=== PATIENT | male | born 1950 | race Caucasian/White ===

== ENCOUNTER 2020-06-30 07:33 | Outpatient (CLI) | payer MEDICARE, OTHER ==
[2020-06-30 14:29] LABS: INR-International Normal Ratio 1.2
[2020-06-30 14:31] LABS: #Eosinphils 0.3 thou/uL (0.0-0.7); #Lymphocytes 1.8 thou/uL (1.20-3.40); #Monocytes 0.6 thou/uL (0.11-0.59); #Neutrophils 3.2 thou/uL (1.40-6.50); %Basophils 0.4 % (0.0-1.0); %Eosinophils 5.7 % (0.0-10.0); %Lymphocytes 30.2 % (21.0-51.0); %Monocytes 10.3 % (0.0-10.0); %Neutrophils 53.4 % (42.0-75.0); Hemoglobin 12.9 g/dL (14.0-18.0); Mean Corpuscular HGB CONC 33.4 g/dL (32.0-36.0); Mean Corpuscular Hemoglobin 31.8 pg (27.0-31.0); Mean Corpuscular Volume 95.3 fL (78.0-98.0); Mean Platelet Volume 9.2 fL (7.4-10.4); Platelet Count 222 thou/uL (130-400); RBC Distribution Width 13.3 % (11.5-14.5); Red Blood Cell (RBC) Count 4.06 mill/uL (4.70-6.10); White Blood Cell (WBC) Count 6.1 thou/uL (4.8-10.8)
[2020-06-30 14:59] LABS: Anion Gap 15 mmol/L (10-20); BUN (Urea Nitrogen) 41 mg/dL (8.4-25.7); Calc. Creatinine Clearance 0 mL/min (70-130); Calcium 9.4 mg/dL (7.8-10.44); Carbon Dioxide 25 mmol/L (23-31); Chloride 107 mmol/L (98-107); Estimated GFR-MDRD 47; Glucose 108 mg/dL (80-115); Potassium 4.9 mmol/L (3.5-5.1); Sodium 142 mmol/L (136-145)
[2020-07-01 14:55] LABS: SARS-CoV-2 MS2 Positive; SARS-CoV-2 N Gene Negative; SARS-CoV-2 S Gene Negative; SARS-CoV-2 by NAA Not Detected (NotDetected); SARS-CoV-2 orf1ab Negative
--- NOTE | 2020-07-01 16:12 | EKG ---
Test Reason : Blood Pressure : / mmHG Vent. Rate : 057 BPM Atrial Rate : 057 BPM P-R Int : 182 ms QRS Dur : 088 ms QT Int : 410 ms P-R-T Axes : 080 082 063 degrees QTc Int : 399 ms Sinus bradycardia Otherwise normal ECG No previous ECGs available Confirmed by JAM LAUREN ([id number]) on 07/01/2020 4:12:03 PM Referred By: FARHAT Confirmed By:JAM LAUREN
== END 2020-06-30 07:34 | disposition home or self-care (01) ==
LOC: LABBT 07:33
PROVIDERS: ATTEND Orthopaedic Surgery
DX: Z01.818 Encounter for other preprocedural examination (principal); Z20.828 Contact with and (suspected) exposure to other viral communicable diseases; M75.102 Unspecified rotator cuff tear or rupture of left shoulder, not specified as traumatic
CPT/HCPCS: 80048; 85025; 85610; 93005; U0003; 87635; 93010

== ENCOUNTER 2020-07-04 07:35 | Day surgery (SDC) | payer MEDICARE ==
[2020-07-04] MEDS ORDERED: Midazolam HCl 2 mg/2 ml Vial ONE (09:05)
[2020-07-04] MEDS ORDERED: Fentanyl 100 MCG/2 ML VIAL ONE ×2 (09:05→09:32)
[2020-07-04] MEDS ORDERED: Lidocaine 2% Jelly 5 ML TUBE ONE (09:32)
[2020-07-04] MEDS ORDERED: Fentanyl 100 MCG/2 ML VIAL IV PRN (09:43)
[2020-07-04] MEDS ORDERED: HYDROcodone/Acetaminophen 10/325 mg Tablet PO PRN ×2 (09:45)
[2020-07-04] MEDS ORDERED: Ondansetron PF 4 MG/2 ML Vial IVP PRN (09:45)
[2020-07-04] MEDS ORDERED: Ropivacaine 0.2% 550 ML 550 ML NERVE BLCK SCH (09:45)
[2020-07-04] MEDS ORDERED: traMADol HCl 50 MG TAB PO PRN ×2 (09:45)
[2020-07-04] MEDS ORDERED: Promethazine HCl 25 MG/ML VIAL IM PRN (09:45)
[2020-07-04] MEDS ORDERED: Zolpidem Tartrate 5 MG TAB PO PRN (09:45)
[2020-07-04] MEDS ORDERED: Bupivacaine/Epinephrine 0.25% 30 ML VIAL ONE (10:08)
[2020-07-04] MEDS ORDERED: Acetaminophen 500 MG TAB ONE (13:46)
[2020-07-04] MEDS ORDERED: Tamsulosin HCl 0.4 MG CAP ONE (16:27)
--- NOTE | 2020-07-05 08:45 | OP ---
DATE OF PROCEDURE: 07/04/2020 PREOPERATIVE DIAGNOSES: Left shoulder impingement, rotator cuff tear, biceps tendon instability and pain secondary to degenerative labrum as well as rotator cuff tear. POSTOPERATIVE DIAGNOSES: Left shoulder impingement, rotator cuff tear, biceps tendon instability and pain secondary to degenerative labrum as well as rotator cuff tear. PROCEDURE PERFORMED: 1. Left shoulder arthroscopy with subacromial decompression. 2. Left shoulder arthroscopic rotator cuff repair. 3. Left shoulder open biceps tenodesis. DRAINMAN: Stephen Mullen PA-C ESTIMATED BLOOD LOSS: Minimal. COMPLICATIONS: None. ANESTHESIA: The patient did have a general anesthetic as well as a preoperative block. IMPLANTS: We used one 4.75 SwiveLock which was made of BioComposite material for a rotator cuff repair and we used one 7 x 23 BioComposite Bio-Tenodesis screw. He went to recovery room in stable condition. INDICATIONS: Mr. Rajan is a 69-year-old male who comes in presenting with continued pain and problems with left shoulder despite nonoperative treatment. DESCRIPTION OF PROCEDURE: After all appropriate consent forms were explained and signed, he was taken to the operating room and at this time was given general anesthetic. Once the level of anesthesia was appropriate, he was rolled into the right lateral decubitus position with all bony prominences well padded. Axillary roll was placed underneath the right axilla and a charles bag was inflated to hold him in this position. The arm was then taken through full range of motion. At this time, the arm was suspended with 10 pounds in standard arthroscopic fashion. The left shoulder and upper extremity were then prepped and draped in standard surgical fashion. Bony anatomical landmarks were drawn out and the subacromial space was infiltrated with Marcaine with epinephrine. Posterior portal was then established. Scope was placed into the shoulder joint. Anterior working portal was then made using a needle localization technique. Diagnostic arthroscopy commenced in the glenohumeral joint and the glenohumeral cartilage overall was found to be in good condition except for one small area anteriorly which was probably about 8 to 10 mm in diameter, which was just off the anterior labrum on the glenoid surface. This cartilage was found to be unstable and was taken down with the shaver, so no longer could become a mechanical irritant during range of motion. Degenerative labral tearing was noted superiorly. The patient was also noted to have a significant partial undersurface cuff tear which was debrided from the undersurface. This would later be marked so that I would know where it was on the superior surface. Prior to doing that, we then turned our attention to placing a stitch through the biceps tendon. An 18-gauge needle was used to do this. A green cannula was placed anteriorly and once this stitch had been placed through the biceps, the arthroscopic scissors were used to cut the tendon off the labrum. At this time, we placed our needle for marking purposes, removed the scope and replaced it into the subacromial space. Lateral working portal was then made and the bursa was removed from off the underlying rotator cuff. Where the needle was located, there was a bulge in this area with scant tissue there. Tissue also had a slight yellow discoloration to it. Therefore, this was taken down sharply with a knife to complete the tear. A shaver was used to debride this degenerative tissue at this time. We then performed a small subacromial decompression using a SERFAS energy and a shaver. Once this was done, the passport cannula was placed laterally and we decided to do a speed fix technique for this very small tear. The FiberTape was placed through the tear in inverted mattress fashion using the Scorpion device and the two limbs of the FiberTape were taken down laterally through the SwiveLock for the final repair. This gave us a nice closure of the small hole as based on the use of the posterior as well as a lateral portals. Arm was noted to have full range of motion at this time. At this time, scope was removed. Shoulder was drained. A 15 blade was used to make our incision for a biceps tenodesis. Bovie was used to coagulate any brisk venous bleeding. At this time, sharp dissection was used to enter to the deltoid fascia and finger dissection was used to split the fibers of the deltoid in line. The bicipital groove was noted, it was opened. Tendon was pulled out into the wound. Any brisk venous bleeding was coagulated and any adherent tissue was freed up. The tendon was then sutured and the intra-articular portion was cut off and removed from the field. At this time, pin was placed. Reamer was used to ream to a depth of 25, and this was a 7 mm reamer. The tendon was then placed and fixated with a 7 x 23 BioComposite Bio-Tenodesis screw in standard fashion. Sutures were tied over top of this so the screw would not back out. At this time, the wound was thoroughly irrigated and dried. A running Vicryl was used to close our deltoid fascia. 2-0 Vicryl and stitches were used to close the small incision. Each portal was also closed with a simple stitch. Bulky sterile dressing was applied. The patient was awakened, taken to recovery room in stable condition. All counts were correct at the end of the case and he did receive preoperative IV antibiotics. The teacher's assistant surgeon was present throughout the biceps tenodesis procedure to include the approach, the fixation of the tendon itself, and finally the closure of all wounds. Job ID: [id number]
== END 2020-07-04 17:15 | disposition home or self-care (01) ==
LOC: SDC 07:35
PROVIDERS: ATTEND Orthopaedic Surgery
PROC: 0LS40ZZ Reposition Left Upper Arm Tendon, Open Approach (ICD-10-PCS; principal; 2020-07-04)
PROC: 0RHK04Z Insertion of Internal Fixation Device into Left Shoulder Joint, Open Approach (ICD-10-PCS; 2020-07-04)
PROC: 0LQ24ZZ Repair Left Shoulder Tendon, Percutaneous Endoscopic Approach (ICD-10-PCS; 2020-07-04)
PROC: 0RNK4ZZ Release Left Shoulder Joint, Percutaneous Endoscopic Approach (ICD-10-PCS; 2020-07-04)
DX: M75.112 Incomplete rotator cuff tear or rupture of left shoulder, not specified as traumatic (principal); M25.812 Other specified joint disorders, left shoulder; S43.492A Other sprain of left shoulder joint, initial encounter; M24.112 Other articular cartilage disorders, left shoulder; I10 Essential (primary) hypertension; E78.5 Hyperlipidemia, unspecified; I25.10 Atherosclerotic heart disease of native coronary artery without angina pectoris; I48.91 Unspecified atrial fibrillation; Z79.01 Long term (current) use of anticoagulants; Z79.82 Long term (current) use of aspirin; Z79.899 Other long term (current) drug therapy; Z88.8 Allergy status to other drugs, medicaments and biological substances; Z91.013 Allergy to seafood; Z91.041 Radiographic dye allergy status; Z95.5 Presence of coronary angioplasty implant and graft
CPT/HCPCS: 23430; 29826; 29827; A4306; C1713 ×2; J0690; J2250; J2795; J3010

== ENCOUNTER 2021-04-10 10:09 | Outpatient (CLI) | payer MEDICARE ==
[2021-04-10 11:29] LABS: #Eosinphils 0.4 10x3/uL (0.0-0.5); #Monocytes 0.7 10x3/uL (0.0-1.1); %Basophils 0.5 % (0.0-2.0); %Eosinophils 6.2 % (0.0-6.0); %Lymphocytes 33.7 % (18.0-47.0); %Monocytes 10.8 % (0.0-10.0); %Neutrophils 48.5 % (40.0-75.0); Mean Corpuscular HGB CONC 33.6 g/dL (32.0-36.0); Mean Corpuscular Hemoglobin 30.7 pg (27.0-33.0); Mean Corpuscular Volume 91.5 fl (81.2-95.1); Mean Platelet Volume 10.6 fl (7.4-10.4); Platelet Count 204 10x3/uL (150-450); RBC Distribution Width 13.7 % (11.5-14.5); Red Blood Cell (RBC) Count 4.23 10x6/uL (4.32-5.72); White Blood Cell (WBC) Count 6.1 10x3/uL (3.5-10.5)
[2021-04-10 11:43] LABS: Anion Gap 12 mmol/L (10-20); BUN (Urea Nitrogen) 35 mg/dL (8.4-25.7); Calc. Creatinine Clearance 0 mL/min (70-130); Carbon Dioxide 29 mmol/L (23-31); Chloride 107 mmol/L (98-107); Glucose 96 mg/dL (83-110); Potassium 4.6 mmol/L (3.5-5.1); Sodium 143 mmol/L (136-145)
== END 2021-04-10 10:10 | disposition home or self-care (01) ==
LOC: LABBT 10:09
PROVIDERS: ATTEND Orthopaedic Surgery
DX: Z01.818 Encounter for other preprocedural examination (principal); S46.811A Strain of other muscles, fascia and tendons at shoulder and upper arm level, right arm, initial encounter
CPT/HCPCS: 71046; 80048; 85025; 93005; 93010

== ENCOUNTER 2021-04-15 07:56 | Day surgery (SDC) | payer MEDICARE ==
[2021-04-14 12:28] VITALS: BMI 24.7
[2021-04-15] MEDS ORDERED: Fentanyl 100 MCG/2 ML VIAL ONE ×2 (09:27→11:31)
[2021-04-15] MEDS ORDERED: Midazolam HCl 2 mg/2 ml Vial ONE (09:27)
[2021-04-15] MEDS ORDERED: Fentanyl 100 MCG/2 ML VIAL IV PRN (10:13)
[2021-04-15] MEDS ORDERED: Ketorolac Tromethamine 30 MG/ML VIAL IVP PRN (10:15)
[2021-04-15] MEDS ORDERED: Ropivacaine 0.2% 550 ML 550 ML NERVE BLCK SCH (10:15)
[2021-04-15] MEDS ORDERED: traMADol HCl 50 MG TAB PO PRN ×2 (10:15)
[2021-04-15] MEDS ORDERED: Zolpidem Tartrate 5 MG TAB PO PRN (10:15)
[2021-04-15] MEDS ORDERED: Ondansetron PF 4 MG/2 ML Vial IVP PRN (10:15)
[2021-04-15] MEDS ORDERED: Promethazine HCl 25 MG/ML VIAL IM PRN (10:15)
[2021-04-15] MEDS ORDERED: HYDROcodone/Acetaminophen 10/325 mg Tablet PO PRN ×2 (10:15)
[2021-04-15] MEDS ORDERED: Ondansetron PF 4 MG/2 ML Vial ONE (11:55)
[2021-04-15] MEDS ORDERED: Glycopyrrolate 0.2 MG/ML 5 ML SYRINGE ONE (11:55)
[2021-04-15] MEDS ORDERED: Rocuronium Bromide 10 MG/ML (10ML VIAL) ONE (11:55)
[2021-04-15] MEDS ORDERED: Ketorolac Tromethamine 30 MG/ML VIAL ONE (11:55)
[2021-04-15] MEDS ORDERED: PROPOFOL 200 MG/20 ML VIAL ONE (11:55)
[2021-04-15] MEDS ORDERED: Lidocaine 1% PF 5 ML VIAL ONE (11:55)
[2021-04-15] MEDS ORDERED: Ropivacaine 0.5% HCl/PF (150 MG/30 ML VIAL) ONE (11:55)
[2021-04-15] MEDS ORDERED: Dexamethasone 20 MG/5 ML VIAL ONE (11:55)
[2021-04-15] MEDS ORDERED: PHENYLEPHRINE-NS 100 MCG/ML 10 ML SYRINGE ONE (11:55)
[2021-04-15] MEDS ORDERED: Lidocaine 1% w/Epinephrine 1:100K 20 ML VIAL ONE (12:19)
== END 2021-04-15 16:51 | disposition home or self-care (01) ==
LOC: SDC 07:56
PROVIDERS: ATTEND Orthopaedic Surgery
PROC: 0RHJ04Z Insertion of Internal Fixation Device into Right Shoulder Joint, Open Approach (ICD-10-PCS; principal; 2021-04-15)
PROC: 0RBJ4ZZ Excision of Right Shoulder Joint, Percutaneous Endoscopic Approach (ICD-10-PCS; 2021-04-15)
PROC: 0LS30ZZ Reposition Right Upper Arm Tendon, Open Approach (ICD-10-PCS; 2021-04-15)
DX: M75.111 Incomplete rotator cuff tear or rupture of right shoulder, not specified as traumatic (principal); S43.431A Superior glenoid labrum lesion of right shoulder, initial encounter; J45.909 Unspecified asthma, uncomplicated; M10.9 Gout, unspecified; I10 Essential (primary) hypertension; K21.9 Gastro-esophageal reflux disease without esophagitis; R33.9 Retention of urine, unspecified; Z79.01 Long term (current) use of anticoagulants; Z79.82 Long term (current) use of aspirin; Z79.899 Other long term (current) drug therapy; Z88.8 Allergy status to other drugs, medicaments and biological substances; Z91.013 Allergy to seafood; Z91.041 Radiographic dye allergy status; Z95.5 Presence of coronary angioplasty implant and graft
CPT/HCPCS: 23430; 29823; A4306; C1713; J0690; J1100; J1885; J2250; J2405; J2704; J2795; J3010